=== PATIENT | male | born 1970 | race Caucasian/White ===

== ENCOUNTER 2018-12-18 18:24 | Observation (INO) | payer OTHER ==
[~2018-12-18] VITALS: Ht 182.9 cm; Wt 66.7 kg
[2018-12-18 18:48] LABS: Source, Urine Catheter
[2018-12-18 18:52] LABS: BASOPHILS ABSOLUTE AUTO 0.08 K/mm3 (0.00-0.23); BASOPHILS PERCENT AUTO 1 % (0-2); EOSINOPHILS PERCENT AUTO 2 % (0-6); Hematocrit 39.1 % (37.0-53.0); Hemoglobin 12.9 g/dL (13.5-17.5); IMMATURE GRAN ABSOLUTE AUTO 0.03 K/mm3 (0.00-0.10); IMMATURE GRAN PERCENT AUTO 0 % (0-1); LYMPHOCYTES ABSOLUTE AUTO 3.12 K/mm3 (0.84-5.20); LYMPHOCYTES PERCENT AUTO 27 % (21-46); MONOCYTES PERCENT AUTO 11 % (4-13); Mean Corpuscular HGB 30.6 pg (26.0-34.0); Mean Corpuscular Volume 93 fL (80-100); Mean Platelet Volume 9.9 fL (9.1-12.4); NEUTROPHILS ABSOLUTE AUTO 6.73 K/mm3 (1.96-9.15); NEUTROPHILS PERCENT AUTO 59 % (41-73); Platelet Count 420 K/mm3 (150-400); RDW Coefficient Variation 12.1 % (11.7-14.2); RDW Standard Deviation 41.8 fL (35.1-46.3); Red Blood Cell Count 4.21 M/mm3 (4.30-5.90); White Blood Cell Count 11.46 K/mm3 (4.00-11.30)
[2018-12-18 18:54] LABS: Bilirubin, Urine Neg (Neg); Blood, Urine Neg (Neg); Glucose Qualitative, Urine Neg (Neg); Ketones, Urine 1+ (Neg); Leukocyte Esterase, Urine Neg (Neg); Nitrite, Urine Neg (Neg); Protein, Urine 3+ (Neg); Urobilinogen, Urine NORM (Normal)
[2018-12-18 19:03] LABS: Appearance, Urine Clear (Clear); Color, Urine Yellow (P-Yellow)
[2018-12-18 19:04] LABS: Amorphous Mod (0-Heavy)
[2018-12-18 19:05] LABS: Bacteria Few /hpf; Red Blood Cells, Urine 0-2 /hpf (0-2); Squamous Epithelial Cells Not Seen /hpf (Few); White Blood Cells, Urine 0-2 /hpf (0-5)
[2018-12-18 19:11] LABS: U Amphetamine Screen DETECTED; U Barbituate Screen Not Detected; U Benzodiazapine Screen Not Detected; U Buprenorphine Screen Not Detected; U Cannabinoids Screen Not Detected; U Cocaine Screen Not Detected; U Methadone Screen Not Detected; U Methamphetamine Screen DETECTED; U Opiates Screen Not Detected; U Oxycodone Screen Not Detected; U Phencyclidine Screen Not Detected; U Propoxyphene Screen Not Detected
[2018-12-18 19:21] LABS: Alanine Aminotransfer (ALT/SGP 50 U/L (12-78); Albumin, Blood 3.8 g/dL (3.4-5.0); Albumin/Globulin Ratio 1.1 (0.8-1.8); Alk Phos 90 U/L (50-136); Anion Gap 9 mmol/L (6-16); Aspartate Aminotrans (AST/SGOT 63 U/L (12-37); Bilirubin, Total 0.4 mg/dL (0.1-1.0); Blood Urea Nitrogen 38 mg/dL (8-24); Bun/Creatinine Ratio 20.3 (12.0-20.0); CO2, Blood 26 mmol/L (21-32); Calcium, Blood 8.4 mg/dL (8.5-10.1); Chloride, Blood 102 mmol/L (98-108); Creatinine, Blood 1.87 mg/dL (0.60-1.20); Ethanol (Alcohol), Blood, Med <3 mg/dL; Globulin, Blood 3.4 g/dL (2.2-4.0); Glomerular Filtration Rate 41 (60-); Glucose, Blood 102 mg/dL (70-99); Potassium, Blood 3.8 mmol/L (3.5-5.5); Sodium, Blood 137 mmol/L (136-145); Total Protein, Blood 7.2 g/dL (6.4-8.2)
[2018-12-18 19:31] LABS: CPK Creatine Kinase 1478 U/L (39-308)
[2018-12-18 19:50] LABS: Creatine Kinase MB 12.6 ng/mL (0.0-3.6); Creatine Kinase MB Index 0.9 (0.0-4.0)
[2018-12-19 03:06] LABS: Source, Urine Catheter
[2018-12-19 03:08] LABS: Bilirubin, Urine Neg (Neg); Blood, Urine Neg (Neg); Glucose Qualitative, Urine Neg (Neg); Ketones, Urine 1+ (Neg); Leukocyte Esterase, Urine Neg (Neg); Nitrite, Urine Neg (Neg); Protein, Urine 3+ (Neg); Urobilinogen, Urine NORM (Normal)
[2018-12-19 03:13] LABS: Appearance, Urine Clear (Clear); Color, Urine Yellow (P-Yellow)
[2018-12-19 03:14] LABS: Amorphous Mod (0-Heavy); Bacteria Rare /hpf; Hyaline Casts 0-2 /lpf (0-2); Red Blood Cells, Urine Not Seen /hpf (0-2); Squamous Epithelial Cells Not Seen /hpf (Few); White Blood Cells, Urine Rare /hpf (0-5)
[2018-12-19 04:18] LABS: Hematocrit 35.6 % (37.0-53.0); Hemoglobin 11.7 g/dL (13.5-17.5); Mean Corpuscular HGB 30.9 pg (26.0-34.0); Mean Corpuscular HGB Conc 32.9 g/dL (31.5-36.5); Mean Corpuscular Volume 94 fL (80-100); Mean Platelet Volume 9.6 fL (9.1-12.4); Platelet Count 271 K/mm3 (150-400); RDW Coefficient Variation 12.4 % (11.7-14.2); RDW Standard Deviation 42.8 fL (35.1-46.3); Red Blood Cell Count 3.79 M/mm3 (4.30-5.90); White Blood Cell Count 7.43 K/mm3 (4.00-11.30)
[2018-12-19 04:43] LABS: Albumin, Blood 3.1 g/dL (3.4-5.0); Albumin/Globulin Ratio 1.1 (0.8-1.8); Bilirubin, Total 0.6 mg/dL (0.1-1.0); Bun/Creatinine Ratio 19.9 (12.0-20.0); Calcium, Blood 7.8 mg/dL (8.5-10.1); Creatinine, Blood 1.61 mg/dL (0.60-1.20); Globulin, Blood 2.8 g/dL (2.2-4.0); Potassium, Blood 3.9 mmol/L (3.5-5.5); Total Protein, Blood 5.9 g/dL (6.4-8.2)
--- NOTE | 2018-12-19 06:15 | NUR ---
ASSUMED PT CARE FROM ED AT 2200 PT ARRIVED ON UNIT SOMNOLENT; HOWEVER, ABLE TO OPEN HIS EYES, WELL START CRYING OUT FOR HIS MOM TO ANY PAINFUL STIMULI. UNABLE TO ANSWER ANY QUESTIONS. HOWEVER, WAS ABLE TO FOLLOW SIMPLE COMMANDS. UPON ARRIVAL TO UNIT A CONDOM CATHETER WAS PLACED IN ORDER TO MONITOR I/O'S; HOWEVER, AT APPROXIMATELY 0230 PT STILL HAD NOT VOIDED AND WAS BLADDER SCANNED SHOWING GREATER THAN 1000CC RETAINED. RECEIVED ORDERS FOR CROUCH PLACEMENT; 14F WITH 10CC BALLOON PLACED WITHOUT DIFFICULTY. STERILE TECHNIQUE MAINTAINED AND PT TOLERATED WELL. UA SENT TO LAB; OUTPUT FOR A TOTAL OF 1200CC OF DARK, EARL COLORED URINE. BLOOD PRESSURES HAVE REMAINED STABLE. NSR WITH HR 70-80'S. LUNG SOUNDS CLEAR T/O ALL LOBES; DRY, NON-PRODUCTIVE COUGH. ATTEMPTED TO WASH FACE WITH LILLIAN DISHSOAP TO REMOVE EXCESS PEPPER SPRAY FROM FACE; HOWEVER, THIS AGITATED PT MORE. PT SHOOK HIS HEAD NO WHEN ASKED IF HIS EYES WERE STILL HURTING/BURNING. PT HAS BEEN SLEEPING SINCE ARRIVAL ON UNIT; 2L OXYGEN VIA NASAL CANNULA IN PLACE WITH BIOX GREATER THAN 91%. WILL CONTINUE TO MONITOR UNTIL REPORT IS HANDED OFF TO ONCOMING RN.
--- NOTE | 2018-12-19 07:15 | NUR ---
START OF SHIFT NOTE: RECEIVED REPORT FROM NOHELIA DILLARD RN, ASSUMED CARE, PATIENT IS SLEEPING, WILL OPEN EYES BUT GO RIGHT BACK TO SLEEP, IVF NS INFUSING AT 125 CC/HR, UNABLE TO ASSESS NEUROLOGICAL STATUS AT THIS TIME, FOLLOWS SOME COMMANDS, LUNG SOUNDS CLEAR BUT DIMINISHED, NSR, HR 70'S, RA SATING 96 %, BOWEL TONES PRESENT, CROUCH CATHETER IN PLACE AND DRAINING TEA COLORED URINE, PATIENT APPEARS TO BE EXTREMELY AGITATED WHEN TOUCHED, AFEBRILE, APPEARS TO BE IN NO PAIN, CALL LIGHT IN REACH, WILL CONTINUE TO MONITOR.
--- NOTE | 2018-12-19 10:58 | NUR ---
DR. SEGURA IN TO SEE PATIENT, NEW ORDERS RECEIVED.
--- NOTE | 2018-12-19 11:33 | NUR ---
PATIENT AGITATED AND CRYING OUT D/T BURNING EYES, COLD WASH CLOTHES APPLIED AND PATIENT WAS INSTRUCTED NOT TO RUB, COOPERATIVE AT THIS TIME, LIQUID ATIVAN ORDERED, CALL LIGHT IN REACH, WILL CONTINUE TO MONITOR.
--- NOTE | 2018-12-19 11:55 | NUR ---
PATIENT AGITATED AND RESTLESS D/T "BURNING IN EYES", PATIENT WAS INSTRUCTED TO NOT RUB EYES, COLD WASH CLOTH APPLIED OVER EYES, PATIENT ALSO RECEIVED 1 MG LIQUID ATIVAN PO, NO PROBLEM SWALLOWING, CALL LIGHT IN REACH, WILL CONTINUE TO MONITOR.
--- NOTE | 2018-12-19 16:20 | NUR ---
CROUCH CATHETER REMOVED ORDERED, ATTENDS PLACE, PATIENT TOLERATED WELL, URINE NOW CLEAR AND YELLOW.
--- NOTE | 2018-12-19 17:37 | NUR ---
SHIFT SUMMARY NOTE: PATIENT SLEPT MOST OF THE DAY, AWOKE BRIEFLY TO VOICE BUT DENIED USE OF ANY SUBSTANCES OR ALCOHOL, STATED "I DON'T DRINK OR DO DRUGS", STILL UNABLE TO PROVIDE A HISTORY, REPORTED THAT HE IS HOMELESS, AWOKE BRIEFLY AFTER HE HAD RUBBED HIS EYES AND CRIED BECAUSE "IT IS BURNING", COLD WASH CLOTHES APPLIED, PATIENT COOPERATIVE AND DID NOT RUB ANYMORE, BACK TO SLEEP, CROUCH CATHETER WAS DISCONTINUED PER DR. SEGURA, PATIENT STARTED ON A DIET, EATING DINNER WITH GOOD APPETITE, NO PROBLEMS SWALLOWING, HAS LR INFUSING AT THIS TIME, PATIENT MAY POSSIBLY GO [employer] TOMORROW, IF HE IS ABLE TO URINATE, URINE HAS CLEARED UP AND IS NOW YELLOW, PATIENT HAD 1400 CC OUT, ATTENDS IN PLACE, BED BATH WAS GIVEN AND PATIENT WAS COOPERATIVE, REMAINS COOPERATIVE, BUT CAN BE AGITATED AND RESTLESS AT TIMES, STATUS CHANGED TO MED WITH NO TELE, AWAITING BED, VSS, AFEBRILE, DENIES PAIN, FOR DETAILS SEE SHIFT ASSESSMENT DOCUMENTATION AND NURSES NOTES, CALL LIGHT IN REACH, WILL CONTINUE TO MONITOR AND GIVE REPORT TO ONCOMING HANDBELL CHOIR DIRECTOR.
[2018-12-20 04:55] LABS: Bun/Creatinine Ratio 16.9 (12.0-20.0); Calcium, Blood 8.3 mg/dL (8.5-10.1); Creatinine, Blood 1.42 mg/dL (0.60-1.20); Potassium, Blood 4.1 mmol/L (3.5-5.5)
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
--- NOTE | 2018-12-20 07:10 | NUR ---
START OF SHIFT NOTE: RECEIVED REPORT FROM YARIEL DILLARD RN, ASSUMED CARE, PATIENT IS SLEEPY BUT EASILY AROUSEABLE, ALERT AND ORIENTED, ANSWERS QUESTIONS APPROPRIATELY, FOLLOWS COMMANDS, DENIES PAIN, AFEBRILE, LUNG SOUNDS CLEAR BUT DIMINISHED, NSR, PATIENT IS HUNGRY AND ASKING FOR FOOD, LR INFUSING AT 100 CC/HR, USES URINAL TO URINATE, CALL LIGHT IN REACH, WILL CONTINUE TO MONITOR.
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
--- NOTE | 2018-12-20 12:31 | NUR ---
PATIENT DISCHARGED TO HOME, ALL DISCHARGE DOCUMENTATION WRITTEN AND VERBAL PROVIDED AND EXPLAINED, PATIENT VERBALIZED UNDERSTANDING AND SIGNED DISCHARGE PAPERWORK, LEFT HOSPITAL ON HIS OWN, DECLINED WHEELCHAIR TO DOOR.
== END 2018-12-20 12:30 | disposition home or self-care (01) ==
LOC: ER 18:24 → ICUW 18:25
PROVIDERS: Emergency Medicine; Internal Medicine; ADMIT Internal Medicine
DX: F15.129 Other stimulant abuse with intoxication, unspecified (principal); G93.40 Encephalopathy, unspecified; N17.9 Acute kidney failure, unspecified; E86.0 Dehydration; M62.82 Rhabdomyolysis; F19.90 Other psychoactive substance use, unspecified, uncomplicated; Z23 Encounter for immunization; Z59.0 Homelessness
CPT/HCPCS: 36415; 51701; 51702; 80048; 80053; 81001; 82550; 82553; 85025; 85027; 90686; 96361; 96372; 96374; 96375; 96376; 99285-25; G0008; G0378; G0480; J1200; J1630; J1650; J2060; J7030; J7120

== ENCOUNTER 2019-04-19 18:41 | Emergency (ER) | payer OTHER ==
[~2019-04-19] VITALS: Ht 172.7 cm; Wt 74.8 kg
== END 2019-04-19 20:47 | disposition home or self-care (01) ==
LOC: ER 18:41
DX: F15.10 Other stimulant abuse, uncomplicated (principal); J06.9 Acute upper respiratory infection, unspecified; F17.200 Nicotine dependence, unspecified, uncomplicated
CPT/HCPCS: 71046; 99283-25

== ENCOUNTER 2019-07-13 04:49 | Emergency (ER) | payer OTHER ==
[~2019-07-13] VITALS: Ht 175.3 cm; Wt 79.4 kg
[2019-07-15 08:30] LABS: Calcium, Ionized (POC) 1.13 mmol/L (1.10-1.46); Chloride (POC) 107 mmol/L (98-108); Creatinine (POC) 2.2 mg/dL (0.8-1.3); Glucose (ISTAT POC) 266 mg/dL (70-99); Hemoglobin (POC) 14.3 g/dL (13.5-17.5); Potassium (POC) 3.7 mmol/L (3.5-5.5); Sodium (POC) 137 mmol/L (135-148); Total CO2 (POC) 18 mmol/L (21-32)
== END 2019-07-13 06:39 | disposition home or self-care (01) ==
LOC: ER 04:49
PROVIDERS: Emergency Medicine
DX: R31.9 Hematuria, unspecified (principal); N18.9 Chronic kidney disease, unspecified; F17.200 Nicotine dependence, unspecified, uncomplicated
CPT/HCPCS: 80047; 85014; 99284

== ENCOUNTER 2021-06-18 00:18 | Observation (INO) | payer OTHER ==
[~2021-06-18] VITALS: Ht 177.8 cm; Wt 77.1 kg
[2021-06-18 00:57] LABS: BASOPHILS ABSOLUTE AUTO 0.06 K/mm3 (0.00-0.23); BASOPHILS PERCENT AUTO 1 % (0-2); EOSINOPHILS ABSOLUTE AUTO 0.25 K/mm3 (0.00-0.68); EOSINOPHILS PERCENT AUTO 3 % (0-6); Hematocrit 34.4 % (37.0-53.0); Hemoglobin 11.5 g/dL (13.5-17.5); IMMATURE GRAN ABSOLUTE AUTO 0.03 K/mm3 (0.00-0.10); IMMATURE GRAN PERCENT AUTO 0 % (0-1); LYMPHOCYTES ABSOLUTE AUTO 2.12 K/mm3 (0.84-5.20); LYMPHOCYTES PERCENT AUTO 22 % (21-46); MONOCYTES PERCENT AUTO 10 % (4-13); Mean Corpuscular HGB 30.4 pg (26.0-34.0); Mean Corpuscular HGB Conc 33.4 g/dL (31.5-36.5); Mean Corpuscular Volume 91 fL (80-100); Mean Platelet Volume 9.8 fL (9.1-12.4); NEUTROPHILS ABSOLUTE AUTO 6.18 K/mm3 (1.96-9.15); NEUTROPHILS PERCENT AUTO 64 % (41-73); Platelet Count 303 K/mm3 (150-400); RDW Coefficient Variation 12.3 % (11.7-14.2); RDW Standard Deviation 41.1 fL (35.1-46.3); Red Blood Cell Count 3.78 M/mm3 (4.30-5.90); White Blood Cell Count 9.64 K/mm3 (4.00-11.30)
[2021-06-18 01:17] LABS: Alanine Aminotransfer (ALT/SGP 25 U/L (12-78); Albumin, Blood 3.1 g/dL (3.4-5.0); Albumin/Globulin Ratio 0.9 (0.8-1.8); Alk Phos 87 U/L (50-136); Anion Gap 6 mmol/L (6-16); Aspartate Aminotrans (AST/SGOT 18 U/L (12-37); Bilirubin, Total 0.3 mg/dL (0.1-1.0); Blood Urea Nitrogen 29 mg/dL (8-24); Bun/Creatinine Ratio 17.3 (12.0-20.0); CO2, Blood 31 mmol/L (21-32); Calcium, Blood 8.5 mg/dL (8.5-10.1); Chloride, Blood 106 mmol/L (98-108); Creatinine, Blood 1.68 mg/dL (0.60-1.20); Ethanol (Alcohol), Blood, Med <3 mg/dL; Globulin, Blood 3.5 g/dL (2.2-4.0); Glomerular Filtration Rate 43 (60-); Glucose, Blood 110 mg/dL (70-99); Potassium, Blood 3.3 mmol/L (3.5-5.5); Salicylate <1.7 mg/dL (2.8-20.0); Sodium, Blood 143 mmol/L (136-145); Total Protein, Blood 6.6 g/dL (6.4-8.2)
[2021-06-18 01:22] LABS: Acetaminophen, Random <2.0 ug/mL (10.0-30.0)
[2021-06-18 02:53] LABS: Influenza A, PCR NEGATIVE (NEGATIVE); Influenza B, PCR NEGATIVE (NEGATIVE); Resp Syncytial Virus, PCR NEGATIVE (NEGATIVE); SARS-Cov-2 (COVID-19) PCR, MMC NEGATIVE (NEGATIVE)
[2021-06-18] MEDS ORDERED: CEPH500 PO (11:09)
== END 2021-06-18 13:04 | disposition home or self-care (01) ==
LOC: ER 00:18 → EOR 00:19
PROVIDERS: ADMIT Emergency Medicine
DX: F15.159 Other stimulant abuse with stimulant-induced psychotic disorder, unspecified (principal); L03.116 Cellulitis of left lower limb; Z20.822 Contact with and (suspected) exposure to COVID-19; Z59.00 Homelessness unspecified
CPT/HCPCS: 0241U; 36415; 80053; 85025; 93005; 93010; A9270; G0480; J1790

== ENCOUNTER 2021-06-20 20:37 | Emergency (ER) | payer OTHER ==
[~2021-06-20] VITALS: Ht 172.7 cm; Wt 72.6 kg
[~2021-06-20 20:37] MED LIST: CEPH500 PO
== END 2021-06-20 23:50 | disposition left against medical advice (07) ==
LOC: ER 20:37
DX: N23 Unspecified renal colic (principal); M25.572 Pain in left ankle and joints of left foot; Z59.00 Homelessness unspecified; Z53.21 Procedure and treatment not carried out due to patient leaving prior to being seen by health care provider
CPT/HCPCS: 73610

== ENCOUNTER 2021-12-17 20:21 | Emergency (ER) | payer OTHER ==
[~2021-12-17] VITALS: Ht 172.7 cm; Wt 70.3 kg
== END 2021-12-18 08:13 | disposition home or self-care (01) ==
LOC: ER 20:21
DX: F15.159 Other stimulant abuse with stimulant-induced psychotic disorder, unspecified (principal); F17.200 Nicotine dependence, unspecified, uncomplicated; Z79.899 Other long term (current) drug therapy
CPT/HCPCS: J1200; J1630; J2060

== ENCOUNTER 2022-02-21 21:14 | Emergency (ER) | payer OTHER ==
[~2022-02-21] VITALS: Ht 170.2 cm; Wt 72.6 kg
[2022-02-22 01:57] LABS: Source, Urine Clean Catch
[2022-02-22 02:22] LABS: Appearance, Urine Clear (Clear); Bilirubin, Urine Neg (Neg); Blood, Urine Neg (Neg); Color, Urine Yellow (P-Yellow); Glucose Qualitative, Urine Neg (Neg); Ketones, Urine Neg (Neg); Leukocyte Esterase, Urine Neg (Neg); Nitrite, Urine Neg (Neg); Protein, Urine 3+ (Neg); Urobilinogen, Urine NORM (Normal)
[2022-02-22 02:31] LABS: Bacteria Rare /hpf; Hyaline Casts 0-2 /lpf (0-2); Red Blood Cells, Urine 0-2 /hpf (0-2); Squamous Epithelial Cells Rare /hpf (Few); White Blood Cells, Urine 0-2 /hpf (0-5)
== END 2022-02-22 02:50 | disposition home or self-care (01) ==
LOC: ER 21:14
PROVIDERS: Physician Assistant
DX: R10.9 Unspecified abdominal pain (principal); F17.210 Nicotine dependence, cigarettes, uncomplicated
CPT/HCPCS: 81001

== ENCOUNTER 2022-02-23 20:14 | Emergency (ER) | payer OTHER ==
[~2022-02-23] VITALS: Ht 180.3 cm; Wt 72.6 kg
== END 2022-02-24 00:45 | disposition left against medical advice (07) ==
LOC: ER 20:14
DX: M79.671 Pain in right foot (principal); M79.672 Pain in left foot; F17.210 Nicotine dependence, cigarettes, uncomplicated
CPT/HCPCS: 99283

== ENCOUNTER 2022-02-24 18:48 | Emergency (ER) | payer OTHER ==
[~2022-02-24] VITALS: Ht 160 cm; Wt 70.3 kg
== END 2022-02-24 19:58 | disposition home or self-care (01) ==
LOC: ER 18:48
DX: R45.1 Restlessness and agitation (principal); F17.210 Nicotine dependence, cigarettes, uncomplicated
CPT/HCPCS: 99283

== ENCOUNTER 2022-02-25 20:22 | Emergency (ER) | payer OTHER ==
[~2022-02-25] VITALS: Ht 172.7 cm; Wt 72.6 kg
[2022-02-25 20:41] LABS: Source, Urine Clean Catch
[2022-02-25 20:46] LABS: Appearance, Urine Clear (Clear); Bilirubin, Urine Neg (Neg); Blood, Urine Neg (Neg); Color, Urine Yellow (P-Yellow); Glucose Qualitative, Urine Neg (Neg); Ketones, Urine 1+ (Neg); Leukocyte Esterase, Urine Neg (Neg); Nitrite, Urine Neg (Neg); Protein, Urine 3+ (Neg); Specific Gravity, Urine 1.015 (1.003-1.022); Urobilinogen, Urine NORM (Normal)
[2022-02-25 20:56] LABS: Bacteria Not Seen /hpf; Red Blood Cells, Urine Not Seen /hpf (0-2); Squamous Epithelial Cells Rare /hpf (Few); White Blood Cells, Urine 0-2 /hpf (0-5)
== END 2022-02-25 20:57 | disposition home or self-care (01) ==
LOC: ER 20:22
PROVIDERS: Physician Assistant
DX: R31.9 Hematuria, unspecified (principal); F17.210 Nicotine dependence, cigarettes, uncomplicated
CPT/HCPCS: 81001

== ENCOUNTER 2022-05-02 02:39 | Emergency (ER) | payer OTHER ==
[~2022-05-02] VITALS: Ht 180.3 cm; Wt 68.0 kg
[2022-05-02 03:09] LABS: BASOPHILS ABSOLUTE AUTO 0.09 K/mm3 (0.00-0.23); BASOPHILS PERCENT AUTO 1 % (0-2); EOSINOPHILS ABSOLUTE AUTO 0.27 K/mm3 (0.00-0.68); EOSINOPHILS PERCENT AUTO 4 % (0-6); Hematocrit 35.5 % (37.0-53.0); Hemoglobin 11.9 g/dL (13.5-17.5); IMMATURE GRAN ABSOLUTE AUTO 0.02 K/mm3 (0.00-0.10); IMMATURE GRAN PERCENT AUTO 0 % (0-1); LYMPHOCYTES ABSOLUTE AUTO 2.32 K/mm3 (0.84-5.20); LYMPHOCYTES PERCENT AUTO 31 % (21-46); MONOCYTES ABSOLUTE AUTO 0.76 K/mm3 (0.16-1.47); MONOCYTES PERCENT AUTO 10 % (4-13); Mean Corpuscular HGB 29.8 pg (26.0-34.0); Mean Corpuscular HGB Conc 33.5 g/dL (31.5-36.5); Mean Corpuscular Volume 89 fL (80-100); Mean Platelet Volume 9.5 fL (9.1-12.4); NEUTROPHILS PERCENT AUTO 54 % (41-73); Platelet Count 471 K/mm3 (150-400); RDW Coefficient Variation 12.3 % (11.7-14.2); RDW Standard Deviation 40.6 fL (35.1-46.3); Red Blood Cell Count 3.99 M/mm3 (4.30-5.90); White Blood Cell Count 7.56 K/mm3 (4.00-11.30)
[2022-05-02 03:27] LABS: Albumin, Blood 3.2 g/dL (3.4-5.0); Albumin/Globulin Ratio 0.9 (0.8-1.8); Bilirubin, Total 0.5 mg/dL (0.1-1.0); Bun/Creatinine Ratio 19.3 (12.0-20.0); Calcium, Blood 8.6 mg/dL (8.5-10.1); Creatinine, Blood 1.81 mg/dL (0.60-1.20); Globulin, Blood 3.6 g/dL (2.2-4.0); Potassium, Blood 3.4 mmol/L (3.5-5.5); Total Protein, Blood 6.8 g/dL (6.4-8.2)
== END 2022-05-02 05:45 | disposition home or self-care (01) ==
LOC: ER 02:39
PROVIDERS: Student in an Organized Health Care Education/Training Program
DX: R07.9 Chest pain, unspecified (principal); F17.210 Nicotine dependence, cigarettes, uncomplicated; Z59.00 Homelessness unspecified
CPT/HCPCS: 80053; 84484; 85025; 93005; 93010; 99285-25; J7030

== ENCOUNTER 2022-06-15 00:05 | Emergency (ER) | payer OTHER ==
[~2022-06-15] VITALS: Ht 172.7 cm; Wt 70.3 kg
== END 2022-06-15 01:54 | disposition home or self-care (01) ==
LOC: ER 00:05
DX: F15.90 Other stimulant use, unspecified, uncomplicated (principal)
CPT/HCPCS: 99284; A9270

== ENCOUNTER 2022-08-19 11:05 | Emergency (ER) | payer OTHER ==
[~2022-08-19] VITALS: Ht 170.2 cm; Wt 81.7 kg
[2022-08-19 11:10] VITALS: BP 154/92
== END 2022-08-19 11:20 | disposition left against medical advice (07) ==
LOC: ER 11:05
DX: R21 Rash and other nonspecific skin eruption (principal); Z53.21 Procedure and treatment not carried out due to patient leaving prior to being seen by health care provider
CPT/HCPCS: 99283

== ENCOUNTER 2022-09-24 21:40 | Emergency (ER) | payer OTHER ==
[~2022-09-24] VITALS: Ht 172.7 cm; Wt 68.0 kg
[2022-09-24 21:44] VITALS: BP 160/71
== END 2022-09-24 21:50 | disposition home or self-care (01) ==
LOC: ER 21:40
DX: T69.022A Immersion foot, left foot, initial encounter (principal); T69.021A Immersion foot, right foot, initial encounter; F17.200 Nicotine dependence, unspecified, uncomplicated; Z59.00 Homelessness unspecified
CPT/HCPCS: 99282

== ENCOUNTER 2022-10-07 20:53 | Emergency (ER) | payer OTHER ==
[~2022-10-07] VITALS: Ht 172.7 cm; Wt 72.6 kg
[2022-10-07 21:09] VITALS: BP 125/72
== END 2022-10-07 21:15 | disposition home or self-care (01) ==
LOC: ER 20:53
DX: M79.671 Pain in right foot (principal); F17.210 Nicotine dependence, cigarettes, uncomplicated
CPT/HCPCS: 99282

== ENCOUNTER 2022-11-26 20:27 | Emergency (ER) | payer OTHER ==
[~2022-11-26] VITALS: Ht 182.9 cm; Wt 81.7 kg
[2022-11-26 20:31] VITALS: BP 146/112
== END 2022-11-26 22:00 | disposition home or self-care (01) ==
LOC: ER 20:27
DX: K08.89 Other specified disorders of teeth and supporting structures (principal); F17.210 Nicotine dependence, cigarettes, uncomplicated; Z59.00 Homelessness unspecified
CPT/HCPCS: 99282

== ENCOUNTER 2022-11-28 19:28 | Emergency (ER) | payer OTHER ==
[~2022-11-28] VITALS: Ht 180.3 cm; Wt 86.2 kg
[2022-11-28 19:58] VITALS: BP 141/88
[2022-11-28 22:40] LABS: U Amphetamine Screen DETECTED; U Barbituate Screen Not Detected; U Benzodiazapine Screen Not Detected; U Buprenorphine Screen Not Detected; U Cannabinoids Screen Not Detected; U Cocaine Screen Not Detected; U Methadone Screen Not Detected; U Methamphetamine Screen DETECTED; U Opiates Screen Not Detected; U Oxycodone Screen Not Detected; U Phencyclidine Screen Not Detected; U Propoxyphene Screen Not Detected
== END 2022-11-29 00:03 | disposition home or self-care (01) ==
LOC: ER 19:28
PROVIDERS: Student in an Organized Health Care Education/Training Program
DX: F15.90 Other stimulant use, unspecified, uncomplicated (principal); Z87.891 Personal history of nicotine dependence
CPT/HCPCS: 99283

== ENCOUNTER 2023-01-10 19:37 | Emergency (ER) | payer OTHER ==
[~2023-01-10] VITALS: Ht 167.6 cm; Wt 68.0 kg
[2023-01-10 19:49] VITALS: BP 135/85
== END 2023-01-10 21:45 | disposition home or self-care (01) ==
LOC: ER 19:37
DX: M79.642 Pain in left hand (principal); M25.561 Pain in right knee; R20.8 Other disturbances of skin sensation
CPT/HCPCS: 73130; 73560-RT; 96372; 99283-25; A9270; J1885

== ENCOUNTER 2023-02-20 04:53 | Emergency (ER) | payer OTHER ==
[~2023-02-20] VITALS: Ht 172.7 cm; Wt 72.6 kg
[2023-02-20 05:32] VITALS: BP 143/78
== END 2023-02-20 10:29 | disposition home or self-care (01) ==
LOC: ER 04:53
DX: L98.9 Disorder of the skin and subcutaneous tissue, unspecified (principal); F17.210 Nicotine dependence, cigarettes, uncomplicated; Z59.00 Homelessness unspecified; Z73.4 Inadequate social skills, not elsewhere classified; Z59.48 Other specified lack of adequate food
CPT/HCPCS: 99283

== ENCOUNTER 2023-02-21 05:58 | Emergency (ER) | payer OTHER ==
[~2023-02-21] VITALS: Ht 177.8 cm; Wt 68.0 kg
[2023-02-21 06:33] VITALS: BP 140/99
== END 2023-02-21 07:04 | disposition home or self-care (01) ==
LOC: ER 05:58
DX: M79.671 Pain in right foot (principal); M79.672 Pain in left foot; Z59.00 Homelessness unspecified; Z76.89 Persons encountering health services in other specified circumstances; F20.9 Schizophrenia, unspecified; F17.210 Nicotine dependence, cigarettes, uncomplicated; X50.3XXA Overexertion from repetitive movements, initial encounter; Y93.B9 Activity, other involving muscle strengthening exercises
CPT/HCPCS: 99283

== ENCOUNTER 2023-02-26 22:18 | Emergency (ER) | payer OTHER ==
[~2023-02-26] VITALS: Ht 172.7 cm; Wt 74.8 kg
[2023-02-26 22:24] VITALS: BP 128/105
== END 2023-02-26 22:28 | disposition home or self-care (01) ==
LOC: ER 22:18
DX: T69.022A Immersion foot, left foot, initial encounter (principal); T69.021A Immersion foot, right foot, initial encounter; F17.210 Nicotine dependence, cigarettes, uncomplicated
CPT/HCPCS: 99283

== ENCOUNTER 2023-03-15 02:35 | Emergency (ER) | payer OTHER ==
[~2023-03-15] VITALS: Ht 177.8 cm; Wt 63.5 kg
[2023-03-15 02:51] VITALS: BP 108/77
== END 2023-03-15 04:11 | disposition home or self-care (01) ==
LOC: ER 02:35
DX: T69.021A Immersion foot, right foot, initial encounter (principal); T69.022A Immersion foot, left foot, initial encounter; F20.9 Schizophrenia, unspecified; F17.210 Nicotine dependence, cigarettes, uncomplicated; X58.XXXA Exposure to other specified factors, initial encounter
CPT/HCPCS: 99283

== ENCOUNTER 2023-04-07 22:32 | Emergency (ER) | payer OTHER ==
[~2023-04-07] VITALS: Ht 170.2 cm; Wt 56.7 kg
[2023-04-07 22:40] VITALS: BP 144/105
== END 2023-04-08 00:20 | disposition home or self-care (01) ==
LOC: ER 22:32
DX: F41.9 Anxiety disorder, unspecified (principal); R07.9 Chest pain, unspecified; F17.210 Nicotine dependence, cigarettes, uncomplicated
CPT/HCPCS: 93005; 93010; 99285-25

== ENCOUNTER 2023-04-09 20:57 | Emergency (ER) | payer OTHER ==
[~2023-04-09] VITALS: Ht 170.2 cm; Wt 81.7 kg
[2023-04-09 23:20] VITALS: BP 135/97
[2023-04-09 23:51] LABS: BASOPHILS PERCENT AUTO 2 % (0-2); EOSINOPHILS ABSOLUTE AUTO 0.28 K/mm3 (0.00-0.68); EOSINOPHILS PERCENT AUTO 4 % (0-6); Hemoglobin 11.8 g/dL (13.5-17.5); IMMATURE GRAN ABSOLUTE AUTO 0.02 K/mm3 (0.00-0.10); IMMATURE GRAN PERCENT AUTO 0 % (0-1); LYMPHOCYTES ABSOLUTE AUTO 2.28 K/mm3 (0.84-5.20); LYMPHOCYTES PERCENT AUTO 35 % (21-46); MONOCYTES ABSOLUTE AUTO 0.92 K/mm3 (0.16-1.47); MONOCYTES PERCENT AUTO 14 % (4-13); Mean Corpuscular HGB 30.3 pg (26.0-34.0); Mean Corpuscular HGB Conc 33.7 g/dL (31.5-36.5); Mean Corpuscular Volume 90 fL (80-100); Mean Platelet Volume 9.1 fL (9.1-12.4); NEUTROPHILS ABSOLUTE AUTO 2.89 K/mm3 (1.96-9.15); NEUTROPHILS PERCENT AUTO 45 % (41-73); Platelet Count 395 K/mm3 (150-400); RDW Coefficient Variation 12.7 % (11.7-14.2); RDW Standard Deviation 42.1 fL (35.1-46.3); White Blood Cell Count 6.49 K/mm3 (4.00-11.30)
[2023-04-10 00:13] LABS: Albumin, Blood 3.4 g/dL (3.4-5.0); Bilirubin, Total 0.3 mg/dL (0.1-1.0); Bun/Creatinine Ratio 25.2 (12.0-20.0); Calcium, Blood 8.6 mg/dL (8.5-10.1); Creatinine, Blood 2.1 mg/dL (0.60-1.20); Globulin, Blood 3.5 g/dL (2.2-4.0); Potassium, Blood 3.9 mmol/L (3.5-5.5); Total Protein, Blood 6.9 g/dL (6.4-8.2)
== END 2023-04-10 03:51 | disposition left against medical advice (07) ==
LOC: ER 20:57
PROVIDERS: Student in an Organized Health Care Education/Training Program
DX: R07.9 Chest pain, unspecified (principal); Z53.29 Procedure and treatment not carried out because of patient's decision for other reasons
CPT/HCPCS: 80053; 83690; 85025; 99282

== ENCOUNTER 2023-04-10 08:11 | Emergency (ER) | payer OTHER ==
[~2023-04-10] VITALS: Ht 177.8 cm; Wt 68.0 kg
[2023-04-10 09:31] VITALS: BP 151/106
== END 2023-04-10 09:39 | disposition home or self-care (01) ==
LOC: ER 08:11
DX: Z00.8 Encounter for other general examination (principal); Z59.00 Homelessness unspecified; F17.210 Nicotine dependence, cigarettes, uncomplicated
CPT/HCPCS: 99282

== ENCOUNTER 2023-06-07 16:06 | Emergency (ER) | payer OTHER ==
[~2023-06-07] VITALS: Ht 177.8 cm; Wt 72.6 kg
[2023-06-07 16:20] VITALS: BP 142/98
== END 2023-06-07 19:12 | disposition left against medical advice (07) ==
LOC: ER 16:06
DX: R07.1 Chest pain on breathing (principal); Z53.29 Procedure and treatment not carried out because of patient's decision for other reasons
CPT/HCPCS: 71101; 99282-25

== ENCOUNTER 2023-06-13 20:42 | Emergency (ER) | payer OTHER ==
[~2023-06-13] VITALS: Ht 188 cm; Wt 72.6 kg
[2023-06-13 21:14] VITALS: BP 145/99
== END 2023-06-13 21:27 | disposition home or self-care (01) ==
LOC: ER 20:42
DX: M79.672 Pain in left foot (principal); M79.671 Pain in right foot; F17.210 Nicotine dependence, cigarettes, uncomplicated; F20.9 Schizophrenia, unspecified
CPT/HCPCS: 99283

== ENCOUNTER 2023-06-15 21:21 | Emergency (ER) | payer OTHER ==
[~2023-06-15] VITALS: Ht 172.7 cm; Wt 70.3 kg
[2023-06-15 21:25] VITALS: BP 142/94
== END 2023-06-15 21:33 | disposition home or self-care (01) ==
LOC: ER 21:21
DX: S90.821A Blister (nonthermal), right foot, initial encounter (principal); S90.822A Blister (nonthermal), left foot, initial encounter; F20.9 Schizophrenia, unspecified; F17.210 Nicotine dependence, cigarettes, uncomplicated; X58.XXXA Exposure to other specified factors, initial encounter; Y93.02 Activity, running
CPT/HCPCS: 99283

== ENCOUNTER 2023-06-24 02:58 | Emergency (ER) | payer OTHER ==
[~2023-06-24] VITALS: Ht 177.8 cm; Wt 56.7 kg
[2023-06-24 03:11] VITALS: BP 153/114
== END 2023-06-24 05:10 | disposition home or self-care (01) ==
LOC: ER 02:58
DX: F15.929 Other stimulant use, unspecified with intoxication, unspecified (principal); F17.210 Nicotine dependence, cigarettes, uncomplicated
CPT/HCPCS: 71045

== ENCOUNTER 2023-07-28 03:46 | Emergency (ER) | payer OTHER ==
[~2023-07-28] VITALS: Ht 172.7 cm; Wt 63.5 kg
[2023-07-28 03:57] VITALS: BP 124/85
[2023-07-28] MEDS ORDERED: OLANZapine ODT 5 MG Tab PO ONE (04:00)
== END 2023-07-28 04:05 | disposition home or self-care (01) ==
LOC: ER 03:46
DX: F15.10 Other stimulant abuse, uncomplicated (principal); F17.210 Nicotine dependence, cigarettes, uncomplicated
CPT/HCPCS: 99282; A9270

== ENCOUNTER 2023-08-15 17:04 | Emergency (ER) | payer OTHER ==
[~2023-08-15] VITALS: Ht 172.7 cm; Wt 72.6 kg
[2023-08-15 17:26] VITALS: BP 130/68
[2023-08-15] MEDS ORDERED: TERBINAFINE HCL TOP (17:39)
== END 2023-08-15 17:57 | disposition home or self-care (01) ==
LOC: ER 17:04
DX: B35.3 Tinea pedis (principal); F17.210 Nicotine dependence, cigarettes, uncomplicated
CPT/HCPCS: 99282

== ENCOUNTER 2023-10-12 09:47 | Emergency (ER) | payer OTHER ==
[~2023-10-12] VITALS: Ht 182.9 cm; Wt 68.0 kg
[~2023-10-12 09:47] MED LIST changes: +TERBINAFINE HCL TOP
[2023-10-12 10:23] VITALS: BP 133/114
== END 2023-10-12 10:32 | disposition home or self-care (01) ==
LOC: ER 09:47
DX: T73.0XXA Starvation, initial encounter (principal); F17.210 Nicotine dependence, cigarettes, uncomplicated; Z79.899 Other long term (current) drug therapy
CPT/HCPCS: 99282

== ENCOUNTER 2023-10-30 02:54 | Emergency (ER) | payer OTHER ==
[~2023-10-30] VITALS: Ht 175.3 cm; Wt 81.7 kg
[2023-10-30 03:17] VITALS: BP 188/122
== END 2023-10-30 03:51 | disposition home or self-care (01) ==
LOC: ER 02:54
DX: F15.10 Other stimulant abuse, uncomplicated (principal); Z76.5 Malingerer [conscious simulation]; F17.210 Nicotine dependence, cigarettes, uncomplicated
CPT/HCPCS: 99282

== ENCOUNTER 2023-11-11 10:22 | Emergency (ER) | payer OTHER ==
[~2023-11-11] VITALS: Ht 172.7 cm; Wt 72.6 kg
[2023-11-11 10:25] VITALS: BP 112/96
[2023-11-11] MEDS ORDERED: Triamcinolone Acet 0.1% Cream 15 gm TOP ONE (10:30)
== END 2023-11-11 11:02 | disposition home or self-care (01) ==
LOC: ER 10:22
DX: L25.9 Unspecified contact dermatitis, unspecified cause (principal); Z59.00 Homelessness unspecified
CPT/HCPCS: 99282; A9270

== ENCOUNTER 2023-11-17 01:55 | Emergency (ER) | payer OTHER ==
[~2023-11-17] VITALS: Ht 172.7 cm; Wt 79.4 kg
[2023-11-17 02:55] VITALS: BP 165/119
[2023-11-17] MEDS ORDERED: Ibuprofen 600 MG Tab PO ONE (03:35)
[2023-11-17] MEDS ORDERED: Amoxicillin/Clavulanate K 875 MG Tab PO ONE (03:35)
[2023-11-17] MEDS ORDERED: Acetaminophen 500 MG Tab PO ONE (03:35)
[2023-11-17] MEDS ORDERED: AMOCLA875 PO (03:41)
== END 2023-11-17 04:05 | disposition home or self-care (01) ==
LOC: ER 01:55
DX: K08.89 Other specified disorders of teeth and supporting structures (principal); F17.210 Nicotine dependence, cigarettes, uncomplicated
CPT/HCPCS: 99282; A9270

== ENCOUNTER 2023-12-10 20:07 | Emergency (ER) | payer OTHER ==
[~2023-12-10] VITALS: Ht 172.7 cm; Wt 81.7 kg
[~2023-12-10 20:07] MED LIST changes: +AMOCLA875 PO
[2023-12-10 20:48] VITALS: BP 178/124
== END 2023-12-10 23:58 | disposition left against medical advice (07) ==
LOC: ER 20:07
DX: M25.511 Pain in right shoulder (principal); Z53.21 Procedure and treatment not carried out due to patient leaving prior to being seen by health care provider
CPT/HCPCS: 73030

== ENCOUNTER → 2024-01-08 | Emergency (ER) | payer OTHER ==
[~2024-01-08] VITALS: Ht 172.7 cm; Wt 66.2 kg
[2024-01-08 21:25] VITALS: BP 162/115
== END ==
LOC: ER 20:45
DX: M79.672 Pain in left foot (principal); M79.671 Pain in right foot; F17.210 Nicotine dependence, cigarettes, uncomplicated
CPT/HCPCS: 99282

== ENCOUNTER 2024-03-05 04:10 | Emergency (ER) | payer OTHER ==
[~2024-03-05] VITALS: Ht 177.8 cm; Wt 77.1 kg
[2024-03-05 04:23] VITALS: BP 32/76
[2024-03-05] MEDS ORDERED: Acetaminophen 325 MG TABLET PO ONE (06:10)
== END 2024-03-05 06:19 | disposition home or self-care (01) ==
LOC: ER 04:10
DX: M79.672 Pain in left foot (principal); M79.671 Pain in right foot; F15.10 Other stimulant abuse, uncomplicated; T73.0XXA Starvation, initial encounter; F17.210 Nicotine dependence, cigarettes, uncomplicated; Z59.00 Homelessness unspecified; Z59.89 Other problems related to housing and economic circumstances; X58.XXXA Exposure to other specified factors, initial encounter
CPT/HCPCS: 99283; A9270

== ENCOUNTER 2024-04-02 04:56 | Emergency (ER) | payer OTHER ==
[~2024-04-02] VITALS: Ht 172.7 cm; Wt 79.4 kg
[2024-04-02 05:54] LABS: CORONAVIRUS COVID-19 AG Negative (NEGATIVE)
[2024-04-02 07:22] VITALS: BP 144/80
== END 2024-04-02 07:58 | disposition home or self-care (01) ==
LOC: ER 04:56
PROVIDERS: Student in an Organized Health Care Education/Training Program
DX: J06.9 Acute upper respiratory infection, unspecified (principal); J44.9 Chronic obstructive pulmonary disease, unspecified; Z59.00 Homelessness unspecified; F17.210 Nicotine dependence, cigarettes, uncomplicated
CPT/HCPCS: 71046; 87426-QW; 99283-25

== ENCOUNTER 2024-05-03 15:41 | Emergency (ER) | payer OTHER ==
[~2024-05-03] VITALS: Ht 167.6 cm; Wt 68.0 kg
[2024-05-03 15:55] VITALS: BP 130/100
[2024-05-03] MEDS ORDERED: Acetaminophen 325 MG TABLET PO ONE (16:00)
== END 2024-05-03 16:30 | disposition home or self-care (01) ==
LOC: ER 15:41
DX: T69.022A Immersion foot, left foot, initial encounter (principal); T69.021A Immersion foot, right foot, initial encounter; F17.210 Nicotine dependence, cigarettes, uncomplicated
CPT/HCPCS: 99282; A9270

== ENCOUNTER 2024-12-30 03:14 | Emergency (ER) | payer OTHER ==
[~2024-12-30] VITALS: Ht 172.7 cm; Wt 61.2 kg
[2024-12-30 03:19] VITALS: BP 178/102
== END 2024-12-30 05:56 | disposition home or self-care (01) ==
LOC: ER 03:14
DX: S93.402A Sprain of unspecified ligament of left ankle, initial encounter (principal); X58.XXXA Exposure to other specified factors, initial encounter
CPT/HCPCS: 99283